=== PATIENT | female | born 1985 | race Caucasian/White ===

== ENCOUNTER 2020-09-11 14:29 | Emergency (ER) | payer OTHER | END 2020-09-11 14:41 | disposition home or self-care (01) | LOC: CSHERS 14:29 | DX: K92.0 Hematemesis (principal); G40.909 Epilepsy, unspecified, not intractable, without status epilepticus | CPT/HCPCS: 99284 ==

== ENCOUNTER 2024-02-15 14:33 | Outpatient (CLI) | payer OTHER | END 2024-02-15 14:34 | disposition home or self-care (01) | LOC: CSHULT 14:33 | PROVIDERS: ATTEND Internal Medicine | DX: R07.2 Precordial pain (principal); I10 Essential (primary) hypertension; I49.3 Ventricular premature depolarization | CPT/HCPCS: 93306 ==